=== PATIENT | male | born 1985 | race African-American/Black ===

== ENCOUNTER 2017-06-15 19:38 | Emergency (ER) | payer OTHER ==
[~2017-06-15] VITALS: Ht 182.9 cm; Wt 103.2 kg
[~2017-06-15 19:38] MED LIST: NOCURR
[2017-06-15 19:39] VITALS: BP 148/90
[2017-06-15] MEDS ORDERED: IBUP-2071 PO (19:47)
[2017-06-15] MEDS ORDERED: TRAM50TA4 PO (19:47)
== END 2017-06-15 22:16 | disposition left against medical advice (07) ==
LOC: EMS 19:39
DX: M54.5 Low back pain (principal); Z53.21 Procedure and treatment not carried out due to patient leaving prior to being seen by health care provider